=== PATIENT | female | born 1955 | race American Indian/Alaskan Native ===

== ENCOUNTER 2018-02-26 21:25 | Emergency (ER) | payer OTHER ==
[2018-02-26 21:32] VITALS: BP 124/63; PULSE 79; TEMP 97.9; BMI 27.9
--- NOTE | 2018-02-26 22:17 | PDOC ---
History of Present Illness - General History Source: Patient Exam Limitations: No Limitations - History of Present Illness Initial Comments: 02/26/18 22:38 The patient is a 62 year old female, with a significant past medical history of DM and sciatica, who presents to the emergency department with a left lower back pain for about 3 days and one week of headache. She states she was unable to get up from the toilet today secondary to pain and generalized weakness to her lower extremities. She states the pain is nonradiating. She denies trauma. She denies any recent heavy lifting. She reportedly tried Advil and Tylenol which did not alleviate her pain and resulted in an episodes of diarrhea. She states her headache has been constant and resolves temporarily with Tylenol, however, is concerned because she hit her head about a week ago and the headache returns persistently despite Tylenol use. The patient denies chest pain, shortness of breath,and dizziness. The patient denies fever, chills, nausea, vomit, diarrhea and constipation. The patient denies dysuria, frequency, urgency and hematuria. Allergies: NKDA PCP: Dr. Jacque Gu <Cristal Houston - Last Filed: 02/26/18 22:38> <Sophie Sotelo - Last Filed: 02/27/18 02:08> - General Chief Complaint: Back Pain Stated Complaint: BACK PAIN Time Seen by Provider: 02/26/18 22:16 Past History <Cristal Houston - Last Filed: 02/26/18 22:38> - Past Medical History COPD: No Diabetes: Yes - Surgical History Cholecystectomy: Yes - Suicide/Smoking/Psychosocial Hx Smoking History: Never smoked <Sophie Sotelo - Last Filed: 02/27/18 02:08> - Past Medical History Allergies/Adverse Reactions: Allergies Allergy/AdvReac Type Severity Reaction Status Date / Time No Known Allergies Allergy Verified 02/26/18 21:30 Review of Systems - Review of Systems Able to Perform ROS?: Yes Comments:: 02/26/18 22:38 GENERAL/CONSTITUTIONAL: No fever or chills. No weakness. HEAD, EYES, EARS, NOSE AND THROAT: No change in vision. No ear pain or discharge. No sore throat. CARDIOVASCULAR: No chest pain or shortness of breath. RESPIRATORY: No cough, wheezing, or hemoptysis. GASTROINTESTINAL: No nausea, vomiting, diarrhea or constipation. GENITOURINARY: No dysuria, frequency, or change in urination. MUSCULOSKELETAL: (+) left lower back pain. No joint or muscle swelling. No neck pain. SKIN: No rash NEUROLOGIC: (+) headache, No vertigo, loss of consciousness, or change in strength/sensation. ENDOCRINE: No increased thirst. No abnormal weight change. HEMATOLOGIC/LYMPHATIC: No anemia, easy bleeding, or history of blood clots. ALLERGIC/IMMUNOLOGIC: No hives or skin allergy. <Cristal Houston - Last Filed: 02/26/18 22:38> *Physical Exam - Vital Signs Last Vital Signs Temp Pulse Resp BP Pulse Ox 97.9 F 79 18 124/63 97 02/26/18 21:30 02/26/18 21:30 02/26/18 21:30 02/26/18 21:30 02/26/18 21:30 - Physical Exam Comments: 02/26/18 22:38 GENERAL: Awake, alert, and fully oriented, in no acute distress HEAD: No signs of trauma EYES: PERRLA, EOMI, sclera anicteric, conjunctiva clear ENT: Auricles normal inspection, hearing grossly normal, nares patent, oropharynx clear without exudates. Moist mucosa NECK: Normal ROM, supple, no lymphadenopathy, JVD, or masses LUNGS: Breath sounds equal, clear to auscultation bilaterally. No wheezes, and no crackles HEART: Regular rate and rhythm, normal S1 and S2, no murmurs, rubs or gallops ABDOMEN: Soft, nontender, normoactive bowel sounds. No guarding, no rebound. No masses EXTREMITIES: Normal range of motion, no edema. No clubbing or cyanosis. No cords, erythema, or tenderness NEUROLOGICAL: Cranial nerves II through XII grossly intact. Normal speech, gait unassessed. SKIN: Warm, Dry, normal turgor, no rashes or lesions noted. <Cristal Houston - Last Filed: 02/26/18 22:38> - Vital Signs Last Vital Signs Temp Pulse Resp BP Pulse Ox 97.9 F 79 18 124/63 97 02/26/18 21:30 02/26/18 21:30 02/26/18 21:30 02/26/18 21:30 02/26/18 21:30 <Sophie Sotelo - Last Filed: 02/27/18 02:08> Moderate Sedation - Procedure Monitoring Vital Signs: Procedure Monitoring Vital Signs Temperature 97.9 F 02/26/18 21:30 Pulse Rate 79 02/26/18 21:30 Respiratory Rate 18 02/26/18 21:30 Blood Pressure 124/63 02/26/18 21:30 O2 Sat by Pulse Oximetry (%) 97 02/26/18 21:30 <Cristal Houston - Last Filed: 02/26/18 22:38> - Procedure Monitoring Vital Signs: Procedure Monitoring Vital Signs Temperature 97.9 F 02/26/18 21:30 Pulse Rate 79 02/26/18 21:30 Respiratory Rate 18 02/26/18 21:30 Blood Pressure 124/63 02/26/18 21:30 O2 Sat by Pulse Oximetry (%) 97 02/26/18 21:30 <Sophie Sotelo - Last Filed: 02/27/18 02:08> ED Treatment Course - LABORATORY CBC & Chemistry Diagram: 02/26/18 23:00 02/27/18 00:10 <Sophie Sotelo - Last Filed: 02/27/18 02:08> Medical Decision Making - Medical Decision Making 02/27/18 01:55 Patient Name: FRANK AMADO THIS IS A PRELIMINARY REPORT FROM [facility] APPRENTICE DATE OF SERVICE: 2018-02-26 23:30:18 IMAGES: 376 EXAM: CT LUMBAR SPINE WITHOUT CONTRAST No acute fracture or malalignment. Posterior disc bulges contribute to minimal to moderate canal stenosis L3-L4 through L5-S1. Minimal left neural foraminal stenosis L5-S1. Cholecystectomy. 02/27/18 02:06 Patient Name: FRANK AMADO THIS IS A PRELIMINARY REPORT FROM [facility] APPRENTICE DATE OF SERVICE: 2018-02-26 23:26:08 IMAGES: 132 EXAM: CT HEAD WITHOUT CONTRAST No acute brain parenchymal abnormality. No hemorrhage, mass or acute territorial infarct. Clear visualized paranasal sinuses. Visualized mastoid air cells clear <Sophie Sotelo - Last Filed: 02/27/18 02:08> *DC/Admit/Observation/Transfer - Attestations Scribe Attestion: 02/26/18 22:39 Documentation prepared by Cristal Houston, acting as medical operations supervisor for Sophie Sotelo MD <Cristal Houston - Last Filed: 02/26/18 22:38> - Discharge Dispostion Decision to Admit order: No <Sophie Sotelo - Last Filed: 02/27/18 02:08> Diagnosis at time of Disposition: Muscle spasm of back - Discharge Dispostion Disposition: HOME Condition at time of disposition: Stable - Referrals Referrals: Chris Gu MD [Primary Care Provider] - - Patient Instructions Printed Discharge Instructions: DI for Back Spasm - Post Discharge Activity
[2018-02-26] MEDS ORDERED: KETOROLAC TROMETHAMINE 30 MG/1 ML VIAL IVPUSH ONE (22:34)
[2018-02-26] MEDS ORDERED: METHOCARBAMOL 500 MG TABLET PO ONE (22:35)
[2018-02-26] MEDS ORDERED: METHOCARBAMOL 500 MG TABLET ONE (22:58)
[2018-02-26] MEDS ORDERED: KETOROLAC TROMETHAMINE 30 MG/1 ML VIAL ONE (22:58)
[2018-02-26 23:05] LABS: EOS % 1.6 % (0-4.5); HEMATOCRIT 37.8 % (32.4-45.2); HEMOGLOBIN 12.7 GM/dL (10.7-15.3); LYMPH % 39.1 % (8-40); MCH 24.3 pg (25.7-33.7); MCHC 33.7 g/dl (32.0-36.0); MEAN CELL VOLUME 71.9 fl (80-96); MEAN PLT VOLUME 8.5 fl (7.5-11.1); MONO % 7.4 % (3.8-10.2); NEUT % 50.9 % (42.8-82.8); PLATELET COUNT 251 K/MM3 (134-434); RBC 5.25 M/mm3 (3.60-5.2); RDW 15.2 % (11.6-15.6); WHITE BLOOD COUNT 9.8 K/mm3 (4.0-10.0)
[2018-02-27 00:47] LABS: ALBUMIN 3.4 g/dl (3.4-5.0); ALK PHOS 71 U/L (45-117); ANION GAP 9 MMOL/L (8-16); BILIRUBIN,TOTAL 0.2 mg/dL (0.2-1); BLOOD UREA NITROGEN 13 mg/dL (7-18); CALCIUM 9.1 mg/dL (8.5-10.1); CHLORIDE 105 mmol/L (98-107); CO2 25 mmol/L (21-32); CREATININE 0.8 mg/dL (0.55-1.3); GLUCOSE,RANDOM 143 mg/dL (74-106); POTASSIUM 4.1 mmol/L (3.5-5.1); SGOT/AST 24 U/L (15-37); SGPT/ALT 44 U/L (13-61); SODIUM 140 mmol/L (136-145); TOT PROT 6.8 g/dl (6.4-8.2)
[2018-02-27 02:19] LABS: URINE APPEARANCE SLCLOUDY; URINE BILIRUBIN NEGATIVE (<2.0 mg/dL); URINE COLOR YELLOW; URINE GLUCOSE (UA) NEGATIVE (NEGATIVE); URINE KETONE NEGATIVE (NEGATIVE); URINE LEUK ESTERASE TRACE (NEGATIVE); URINE NITRITE NEGATIVE (NEGATIVE); URINE PROTEIN NEGATIVE (NEGATIVE)
[2018-02-27 02:29] LABS: CALCIUM OXALATE CRYSTALS MODERATE /hpf (NONE SEEN); EPI CELLS RARE /HPF (FEW); URINE BACTERIA RARE /hpf (NONE SEEN); URINE MUCUS RARE
== END 2018-02-27 02:19 | disposition home or self-care (01) ==
LOC: JER 21:25
PROC: 3E0333Z Introduction of Anti-inflammatory into Peripheral Vein, Percutaneous Approach (ICD-10-PCS; principal; 2018-02-26)
DX: M62.830 Muscle spasm of back (principal)
CPT/HCPCS: 36415; 70450-TC; 72131-TC; 80053; 81003; 81015; 85025; 99282-25

== ENCOUNTER 2018-11-10 19:20 | Inpatient (IN) | payer OTHER | END 2018-11-11 15:45 | disposition home or self-care (01) | LOC: J8W 11-11 02:23 → JER 19:20 → JERBED 23:35 ==

== ENCOUNTER 2024-01-23 22:51 | Emergency (ER) | payer BC ==
[2024-01-23 23:03] VITALS: BP 162/88; PULSE 79; RESP 20; TEMP 97.6; BMI 25.6
[2024-01-24 01:18] LABS: BASO % 0.9 % (0-2.0); EOS % 2.1 % (0-4.5); HEMATOCRIT 36.5 % (32.4-45.2); HEMOGLOBIN 11.8 GM/dL (10.7-15.3); LYMPH % 37.6 % (8-40); MCH 23.2 pg (25.7-33.7); MCHC 32.2 g/dl (32.0-36.0); MEAN CELL VOLUME 72.2 fl (80-96); MEAN PLT VOLUME 9.2 fl (7.5-11.1); MONO % 8.2 % (3.8-10.2); NEUT % 51.2 % (42.8-82.8); PLATELET COUNT 240 10^3/uL (134-434); RBC 5.06 M/mm3 (3.60-5.2); RDW 15.5 % (11.6-15.6); WHITE BLOOD COUNT 9.7 K/mm3 (4.0-10.0)
[2024-01-24 01:39] LABS: POTASSIUM 4.4 mmol/L (3.5-5.1)
[2024-01-24 01:41] LABS: ALBUMIN 3.6 g/dl (3.4-5.0); BLOOD UREA NITROGEN 10.3 mg/dL (7-18); CALCIUM 9.9 mg/dL (8.5-10.1)
[2024-01-24 01:46] LABS: BILIRUBIN,TOTAL 0.3 mg/dL (0.2-1); TOT PROT 6.8 g/dl (6.4-8.2)
== END 2024-01-24 02:46 | disposition left against medical advice (07) ==
LOC: JER 22:51
DX: R07.2 Precordial pain (principal); Z20.822 Contact with and (suspected) exposure to COVID-19
CPT/HCPCS: 0241U-QW; 36415; 71045-TC-FY; 80053; 84484; 85025; 93005; 93010; 99285-25